=== PATIENT | female | born 1965 | race Caucasian/White ===

== ENCOUNTER → 2017-06-26 | Outpatient (CLI) | payer MEDICARE ==
[~2017-06-26] MED LIST: ALBU1.25 NEB; ALBU6.7H INH; AMLO5TAB2 PO; ASPI325T17 PO; BUPR300T4 PO; CALC300T5 PO; LOPE2CAP3 PEG; OMEP-110 PO; OXYB5TAB7 PO; SIMV20TA3 PO; folic acid PO
[2017-06-26 11:00] LABS: HEMATOCRIT 41.1 % (34.6-47.8); HEMOGLOBIN 13.7 g/dL (11.7-16.4)
[2017-06-26 11:10] LABS: BLOOD UREA NITROGEN 11 mg/dL (7-18)
[2017-06-26 11:15] LABS: ASPARTATE AMINO TRANSFERASE 15 U/L (15-37)
== END | disposition home or self-care (01) ==
LOC: STAR 09:39
PROVIDERS: ATTEND Obstetrics & Gynecology
DX: Z01.818 Encounter for other preprocedural examination (principal); N84.0 Polyp of corpus uteri; N95.0 Postmenopausal bleeding; R82.99 Other abnormal findings in urine
CPT/HCPCS: 36415; 71020; 80053; 81001; 84702; 84703; 85025; 87086; 93005

== ENCOUNTER 2019-05-23 20:38 | Emergency (ER) | payer MEDICARE ==
[~2019-05-23] VITALS: Ht 149.9 cm; Wt 100.0 kg
[~2019-05-23 20:38] MED LIST changes: -ALBU6.7H INH; +ALBU6.7H8 INH; +AMLO-150 PO; -AMLO5TAB2 PO; +OXYB5TAB10 PO; -OXYB5TAB7 PO
[2019-05-23] MEDS ORDERED: SILVER NITRATE STICK TP ONE ×2 (21:53→22:03)
[2019-05-23 22:31] VITALS: BP 140/80
== END 2019-05-23 22:33 | disposition home or self-care (01) ==
LOC: ED 22:27
DX: R04.0 Epistaxis (principal)
CPT/HCPCS: 30901; 99283; 99284

== ENCOUNTER 2020-10-16 20:06 | Emergency (ER) | payer MEDICAID, MEDICARE ==
[~2020-10-16] VITALS: Ht 149.9 cm; Wt 100.0 kg
[~2020-10-16 20:06] MED LIST changes: -BUPR300T4 PO; +BUPR300T94 PO; +SIMV20TA19 PO; -SIMV20TA3 PO
[2020-10-16 20:12] VITALS: BP 182/87
--- NOTE | 2020-10-16 21:13 | NUR ---
PT STATES THAT SHE CAME INTO THE ED BECAUSE SHE NEEDED HER MEDS REFILLED. HAVING TROUBLE FINDING A PCP. VITAL SIGNS STABLE BP 155/103. PT [id number]. SPEAKS CLEARLY.
== END 2020-10-16 21:44 | disposition home or self-care (01) ==
LOC: ED 21:35
DX: J45.909 Unspecified asthma, uncomplicated (principal); I10 Essential (primary) hypertension; E78.5 Hyperlipidemia, unspecified; Z76.0 Encounter for issue of repeat prescription
CPT/HCPCS: 99281